=== PATIENT | female | born 1980 | race Caucasian/White ===

== ENCOUNTER → 2016-05-05 | Outpatient (CLI) | payer BC ==
[~2016-05-05] MED LIST: ALPR0.25 PO; AMIT75TA2 PO; BIRTH CONTROL PO; ESOM20CA PO; FEXO1TAB43 PO; HYDR-3702 PO; MULT1CAP27 PO; NORE-142 PO; OMEP20CA12 PO; ONDN4T PO; SERT50TA PO; SERT50TA2 PO; SUCR1ORA2 PO; TIZAN4T PO; TRM50T PO; TYLENOL #3 PO; TYLENOL PO
[2016-05-05 17:06] VITALS: BP 152/88
--- NOTE | 2016-05-05 17:06 | Urgent Care T Sheet Gen (E) ---
Intake General Temperature (Fahrenheit): 98.6 Pulse: 98 Blood Pressure Systolic: 152 Blood Pressure Diastolic: 88 Respirations: 18 SPO2: 99 Description of Symptoms Patient presents with R sided back pain. Patient states that 3 years ago, she strained her back. That initial injury required muscle relaxers and PT. States the area has been irritable ever since. On Tuesday, the patient reinjured the area while taking down [place] decorations. Notes muscle spasms and constant dull pain to the area. No radiating pain. No arm or leg weakness. Been taking Tizanidine and Tylenol which isn't helping. Has also been icing the area. History of Present Illness Allergies: Uncoded Allergies: PCN (Allergy, Unknown, RASH, 07/16/13) SEASONAL ALLERGIES (Allergy, Unknown, HEADACHE, NASAL CONGESTION, 07/16/13) NSAIDS (Adverse Reaction, Unknown, Nausea, 07/16/13) STOMACH PROBLEMS D/T GASTRIC BYPASS HX Home Meds Active Scripts Hydrocodone Bit/Acetaminophen (Hydrocodon-Acetaminophen 5-325)1 Each Tablet1 Each PO Q4H PRN PAIN #20 TAB Prov:ZOË BERMEO MD 03/04/16 Reported Medications Norethindrone-Ethinyl Estrad (Necon)1 Each Tablet1 Each PO DAILY 03/04/16 Sertraline HCl 50 Mg [id number] Mg PO DAILY 03/04/16 Omeprazole 20 Mg Capsule.dr20 Mg PO DAILY 03/04/16 Respiratory Constitutional Symptoms: No syptoms reported EENTM: No symptoms reported Respiratory: No symptoms reported Cardiovascular: No symptoms reported Musculoskeletal: Back pain Muscle pain Muscle stiffness All Other Systems Reviewed Remaining Systems: All other systems reviewed with negative findings Past Kyefxsx-Trzfsw-Rsewoz Hx Patient's Social History Alcohol Use: Denies Use Smoking Status: Never smoker Recent foreign travel: No Surgeries/Hospitalizations Hospitalization/Surgery Hx: GASTRIC BYPASS, CHOLY, TONSILLECTOMY HOSPITALIZED AFTER GASTRIC BYPASS WITH INTERNAL BLEEDING NO ANESTHESIA PROBLEMS Respiratory Respiratory History: None Comment: BRONCHITIS Cardiovascular Cardiovascular History: Other, see comment Comment: PFO Neuro/Muscular Comment: NO CURRENT BACK PROBLEMS Reproductive System Sexually Transmitted Diseases: No Gastrointestinal GI/Endocrine History: Anemia, Heartburn, GERD Diabetes Diabetes: No HEENT Impaired Vision: Contacts, Glasses Hearing Impaired: None Integumentary Integumentary History: Other, see comments Comment: SMALL LACERATION TO LT RING FINGER Psychosocial Behavior Disorders: None Physical Exam Physical Exam General Appearance: WD/WN No apparent distress Respiratory Exam: Lungs clear Normal breath sounds Cardiovascular Exam: Regular rate, rhythm Back Exam: Muscle spasm Other (examination of the back reveals tenderness along the R latissimus dorsi muscle. muscle is slightly spasmed. palpation doesn't cause any radiating pain.) Skin Exam: Normal color No rashes Departure Urgent Care Impression Impression: Primary Impression: Strain of latissimus dorsi muscle Qualified Code: S29.012A - Strain of muscle and tendon of back wall of thorax , initial encounter Departure Disposition: HOME OR SELF-CARE Condition: Stable Referrals: THERESA MICHAEL MD (PCP) Additional Instructions: Patient has a history of gastric bypass surgery therefore she is unable to take oral NSAIDs. Since she is unable to ingest NSAIDs, I have prescribed topical NSAIDs in the form of Voltaren gel. She may apply to affected area QID. This should help with muscle inflammation and irritation. I have also refilled her Tizanidine 2mg which she may take TID prn. For pain, she may take the Tramadol 50mg 1-2 tabs po q 4-6 hrs prn pain. Continue with ice to the area. Gentle stretching. If symptoms do not improve, she may need referral to PT Return as needed Patient understands DC instructions. All questions were answered. End of report . CARINE OVIEDO May 05, 2016 17:06
== END ==
LOC: MHUC 10:18
PROVIDERS: ATTEND Physician Assistant
DX: S29.012A Strain of muscle and tendon of back wall of thorax, initial encounter (principal); X58.XXXA Exposure to other specified factors, initial encounter
CPT/HCPCS: 99213